=== PATIENT | male | born 1990 ===

== ENCOUNTER 2021-04-09 16:44 | Emergency (ER) | payer SELFPAY ==
[~2021-04-09] VITALS: Ht 180.3 cm; Wt 77.1 kg
== END 2021-04-09 17:24 | disposition home or self-care (01) ==
LOC: ER 16:44
DX: Z00.8 Encounter for other general examination (principal); Z59.00 Homelessness unspecified; F17.200 Nicotine dependence, unspecified, uncomplicated
CPT/HCPCS: 99283